=== PATIENT | male | born 1965 | race Caucasian/White ===

== ENCOUNTER 2022-01-27 14:00 | Day surgery (SDC) | payer OTHER, SELFPAY ==
[2022-01-27 14:01] VITALS: BP 189/140; PULSE 95; RESP 18; TEMP 37; O2SAT 98; BMI 32.6
[2022-01-27] MEDS: 0.9 % Sodium Chloride 1,000 ML 999 ML IV (14:27)
[2022-01-27] MEDS: Nitroglycerin 0.4 MG TAB.SUBL SUBLINGUAL (14:27)
--- NOTE | 2022-01-27 14:28 | ED.GENADULT ---
HPI - General Adult General Chief complaint: General Medical Stated complaint: choking Time Seen by Provider: 01/27/22 14:23 Source: patient Mode of arrival: ambulatory Limitations: no limitations History of Present Illness MD complaint: ate chicken (no bones) stuck in throat Onset (ago): hour(s) (2.5) Location: mouth (throat) Radiation: non-radiation Severity: moderate Quality: dull Pain Consistency: constant Relieving factors: none Exacerbating factors: other (swallowing - cannot keep anything down including saliva) Associated symptoms: nausea/vomiting Treatments prior to arrival: none Related Data Allergies Allergy/AdvReac Type Severity Reaction Status Date / Time No Known Allergies Allergy Verified 01/27/22 14:23 Review of Systems Review of Systems: Constitutional : No Weight loss, No Fever, No Chills ENT/Mouth : No sore throat, No Rhinorrhea Eyes: No Swelling, No Redness Cardiovascular : No Chest Pain, No SOB, NoEdema Respiratory : No Cough, No Sputum, No Wheezing Gastrointestinal : Positive Nausea, Positive Vomiting, no Diarrhea, no abdominal Pain, No Hematochezia, No Melena Genitourinary : No Dysuria, No Urinary Frequency, No Hematuria, No Urgency Musculoskeletal : No joint pain, No Myalgias, No Joint Swelling Skin : No Skin Lesions, No rash Neuro : No Weakness, No Numbness, No Dizziness, No Headache Psych : No Anxiety/Panic, No Depression Heme/Lymph: No Bruising, No Lymphadenopathy Endocrine : No Polyuria, No Polydipsia All other systems reviewed and are negative. [facility] Past Medical History Attestation statement: The following information was validated with the patient. Medical History No pertinent past medical history Social History Social History (Updated 01/27/22 @ 14:29 by Crista Noble DO) Alcohol intake: never Patient Tobacco Use Status: Never used Tobacco Advance Directives: No Advance Directives Information Provided: No Physical Exam ED Vital Signs: Vital Signs - 24 hr 01/27/22 14:01 Temperature 98.6 F Pulse Rate 95 Respiratory Rate 18 Blood Pressure 189/140 H Pulse Oximetry 98 Oxygen Delivery Method Room Air BMI result Body Mass Index 32.6 Appearance: Alert. Oriented X3. Mild acute distress. Eyes: Pupils equal, round and reactive to light. ENT: Pharynx normal. Spitting up saliva Neck: Normal inspection. Neck supple. CVS: Normal heart rate and rhythm. Pulses normal. Respiratory: No respiratory distress. Breath sounds normal. Abdomen: Soft and non-tender. Skin: Skin warm and dry. Normal skin color. Normal skin turgor. Extremities: No lower extremity edema. No calf ttp Neuro: Oriented X 3. No motor deficit. No sensory deficit. Course Course Course Narrative: no response to nitro will try glucagon no response to glucagon message sent to Dr. Du 306pm. short stay surgery planned admit Medical Decision Making MDM Narrative Medical decision making narrative: 57 yo male with no PMH here with food bolus impaction after eating chicken has had this before but normally can make himself sick at home. At this time he denies bones in the chicken has no medical problems, has never has endoscopy. Will obtain basic labs, IVF, attempt SL nitro to see if this relaxes smooth muscle. Will consult GI if it fails. Not on blood thinners, does note his brother has the same issue. Lab Data Result diagrams: 01/27/22 14:53 01/27/22 14:54 Labs: Lab Results 01/27/22 01/27/22 01/27/22 Range/Units 14:53 14:54 14:54 WBC 7.6 (4.8-10.8) X10*3/uL RBC 5.49 (4.60-5.80) X10*6/uL Hgb 15.8 (14.0-18.0) g/dl Hct 46.3 (42.0-52.0) % MCV 84.3 (80.0-98.0) fL MCH 28.8 (27.0-33.0) pg MCHC 34.1 (31.0-36.0) g/dl RDW 12.6 (11.0-16.0) % Plt Count 311 (160-400) X10*3/uL MPV 8.7 L (9.4-12.4) fL Immature Gran % (Auto) 0.5 H (0.0-0.4) % Neut % (Auto) 61.9 (45-73) % Lymph % (Auto) 26.2 (20-40) % [place] % (Auto) 10.4 (2-11) % Eos % (Auto) 0.3 (0-4) % Baso % (Auto) 0.7 (0-2) % Lymph # (Auto) 2.0 (1.2-4.9) X10*3/uL [place] # (Auto) 0.8 (0.1-1.2) X10*3/uL Eos # (Auto) 0.0 (0.0-0.4) X10*3/uL Baso # (Auto) 0.1 (0.0-0.2) X10*3/uL Abs Immat Gran (auto) 0.04 H (0.00-0.03) X10*3/uL Absolute Neuts (auto) 4.7 (2.0-8.3) x10*3/uL Absolute Nucleated RBC 0.000 (0.0-0.012) X10*3/uL Nucleated RBC % (auto) 0.0 (0.0-0.2) /100WBC PT 11.9 (9.9-13.0) SEC INR 1.0 (0.9-1.1) Sodium 141 (135-145) mmol/L Potassium 5.1 (3.3-5.1) mmol/L Chloride 107 (96-108) mmol/L Carbon Dioxide 28 (22-29) mmol/L Anion Gap 11 L (12-20) BUN 12 (9-16) mg/dL Creatinine 1.03 (0.5-1.4) mg/dL Estim Creat Clear Calc 91.2 Estimated GFR > 60 Random Glucose 107 (60-115) mg/dL Calcium 9.1 (8.4-10.2) mg/dL COVID-19 (DERREK) (Negative) COVID-19 Clin Com 01/27/22 Range/Units 14:54 WBC (4.8-10.8) X10*3/uL RBC (4.60-5.80) X10*6/uL Hgb (14.0-18.0) g/dl Hct (42.0-52.0) % MCV (80.0-98.0) fL MCH (27.0-33.0) pg MCHC (31.0-36.0) g/dl RDW (11.0-16.0) % Plt Count (160-400) X10*3/uL MPV (9.4-12.4) fL Immature Gran % (Auto) (0.0-0.4) % Neut % (Auto) (45-73) % Lymph % (Auto) (20-40) % [place] % (Auto) (2-11) % Eos % (Auto) (0-4) % Baso % (Auto) (0-2) % Lymph # (Auto) (1.2-4.9) X10*3/uL [place] # (Auto) (0.1-1.2) X10*3/uL Eos # (Auto) (0.0-0.4) X10*3/uL Baso # (Auto) (0.0-0.2) X10*3/uL Abs Immat Gran (auto) (0.00-0.03) X10*3/uL Absolute Neuts (auto) (2.0-8.3) x10*3/uL Absolute Nucleated RBC (0.0-0.012) X10*3/uL Nucleated RBC % (auto) (0.0-0.2) /100WBC PT (9.9-13.0) SEC INR (0.9-1.1) Sodium (135-145) mmol/L Potassium (3.3-5.1) mmol/L Chloride (96-108) mmol/L Carbon Dioxide (22-29) mmol/L Anion Gap (12-20) BUN (9-16) mg/dL Creatinine (0.5-1.4) mg/dL Estim Creat Clear Calc Estimated GFR Random Glucose (60-115) mg/dL Calcium (8.4-10.2) mg/dL COVID-19 (DERREK) Negative (Negative) COVID-19 Clin Com See Note Discharge Plan Discharge Clinical Impression: Food impaction of esophagus Qualifiers: Encounter type: initial encounter Qualified Code(s): T18.128A - Food in esophagus causing other injury, initial encounter Patient Disposition: Admitted As Inpatient
--- NOTE | 2022-01-27 14:55 | PC.NURSE ---
pt still unable to pass or vomit chicken. maintaining air way at this time. medicated per emar.
[2022-01-27 14:59] LABS: MANUAL DIFF FLAG NO
[2022-01-27 15:01] LABS: Basophils Absolute Auto 0.1 X10*3/uL (0.0-0.2); Basophils Percent Auto 0.7 % (0-2); Eosinophils Percent Auto 0.3 % (0-4); Hematocrit 46.3 % (42.0-52.0); Hemoglobin 15.8 g/dl (14.0-18.0); Imm Gran Abs Auto 0.04 X10*3/uL (0.00-0.03); Imm Gran Pct Auto 0.5 % (0.0-0.4); Lymphocytes Percent Auto 26.2 % (20-40); Mean Corpuscular HGB Conc 34.1 g/dl (31.0-36.0); Mean Corpuscular Hemoglobin 28.8 pg (27.0-33.0); Mean Corpuscular Volume 84.3 fL (80.0-98.0); Mean Platelet Volume 8.7 fL (9.4-12.4); Monocytes Absolute Auto 0.8 X10*3/uL (0.1-1.2); Monocytes Percent Auto 10.4 % (2-11); Neutrophils Absolute Auto 4.7 x10*3/uL (2.0-8.3); Neutrophils Percent Auto 61.9 % (45-73); Platelet Count 311 X10*3/uL (160-400); Red Blood Count 5.49 X10*6/uL (4.60-5.80); Red Cell Distribution Width 12.6 % (11.0-16.0); White Blood Count 7.6 X10*3/uL (4.8-10.8)
[2022-01-27 15:07] LABS: Prothrombin Time 11.9 SEC (9.9-13.0)
--- NOTE | 2022-01-27 15:08 | PC.NURSE ---
md reaching out to gi at this time, pt aware of plan of care.
[2022-01-27 15:16] LABS: Anion Gap 11 (12-20); Blood Urea Nitrogen 12 mg/dL (9-16); Calcium 9.1 mg/dL (8.4-10.2); Carbon Dioxide 28 mmol/L (22-29); Chloride 107 mmol/L (96-108); Creatinine Clr Calc Pharmacy 91.2; Estimated Glomerular Filt Rate > 60; Glucose Random 107 mg/dL (60-115); Potassium 5.1 mmol/L (3.3-5.1); Sodium 141 mmol/L (135-145)
[2022-01-27 15:25] LABS: COVID-19 Test Negative (Negative); IDNOW Serial# 16C4AD1C
--- NOTE | 2022-01-27 15:41 | ECG_ITS ---
Test Reason : PRE OP Blood Pressure : / mmHG Vent. Rate : 100 BPM Atrial Rate : 100 BPM P-R Int : 158 ms QRS Dur : 080 ms QT Int : 350 ms P-R-T Axes : 033 -14 033 degrees QTc Int : 451 ms Normal sinus rhythm Normal ECG No previous ECGs available Referred By: Crista Noble Electronically Signed By:JH MCCURDY MD
--- NOTE | 2022-01-27 16:28 | HO.ANESPROP2 ---
HPI - Anesthesia Eval Consult details Narrative: food bolus PMFSH Active Problems Active Problems: All Active Problems (Updated 01/27/22 @ 15:07 by Crista Noble DO) Food impaction of esophagus (Acute) Past Medical History Medical History No pertinent past medical history Family History Family history of problems with anesthesia: No Surgical History History of Problems with Anesthesia: No Social History Social History (Updated 01/27/22 @ 14:29 by Crista Noble DO) Alcohol intake: never Patient Tobacco Use Status: Never used Tobacco Advance Directives: No Advance Directives Information Provided: No Meds Allergies Allergy/AdvReac Type Severity Reaction Status Date / Time No Known Allergies Allergy Verified 01/27/22 14:23 Home Medications Medication Instructions Recorded Confirmed Last Taken Type doxepin 3 mg tablet 1 tab PO BEDTIME 01/27/22 Unknown History Exam Exam Date and Time: January 27, 2022 1628 Height,Weight and Vital Signs: Height 5 ft 9 in Weight 100.24 kg Last Vital Signs Temp 98.6 F 01/27/22 14:01 Pulse 95 01/27/22 14:01 Resp 18 01/27/22 14:01 BP 189/140 H 01/27/22 14:01 Pulse Ox 98 01/27/22 14:01 O2 Del Method 01/27/22 14:01 Pertinent Lab Results Pertinent Lab Results: Laboratory Tests 01/27/22 01/27/22 01/27/22 14:53 14:54 14:54 WBC 7.6 RBC 5.49 Hgb 15.8 Hct 46.3 MCV 84.3 MCH 28.8 MCHC 34.1 RDW 12.6 Plt Count 311 MPV 8.7 L Immature Gran % (Auto) 0.5 H Neut % (Auto) 61.9 Lymph % (Auto) 26.2 [place] % (Auto) 10.4 Eos % (Auto) 0.3 Baso % (Auto) 0.7 Lymph # (Auto) 2.0 [place] # (Auto) 0.8 Eos # (Auto) 0.0 Baso # (Auto) 0.1 Abs Immat Gran (auto) 0.04 H Absolute Neuts (auto) 4.7 Absolute Nucleated RBC 0.000 Nucleated RBC % (auto) 0.0 PT 11.9 INR 1.0 Sodium 141 Potassium 5.1 Chloride 107 Carbon Dioxide 28 Anion Gap 11 L BUN 12 Creatinine 1.03 Estim Creat Clear Calc 91.2 Estimated GFR > 60 Random Glucose 107 Calcium 9.1 COVID-19 (DERREK) COVID-19 Clin Com 01/27/22 14:54 WBC RBC Hgb Hct MCV MCH MCHC RDW Plt Count MPV Immature Gran % (Auto) Neut % (Auto) Lymph % (Auto) [place] % (Auto) Eos % (Auto) Baso % (Auto) Lymph # (Auto) [place] # (Auto) Eos # (Auto) Baso # (Auto) Abs Immat Gran (auto) Absolute Neuts (auto) Absolute Nucleated RBC Nucleated RBC % (auto) PT INR Sodium Potassium Chloride Carbon Dioxide Anion Gap BUN Creatinine Estim Creat Clear Calc Estimated GFR Random Glucose Calcium COVID-19 (DERREK) Negative COVID-19 Clin Com See Note Airway Mallampati Class: II TM Dist: >3cm Neck ROM: Full Heart: RRR Lungs: CTA Assessment and Plan Assessment Anesthesia Assessment: Anesthesia Plan Discussed and Chart Reviewed Final Anesthetic Review Family History of Problems with Anesthesia: No History of Problems with Anesthesia: No NPO: No ASA Class: I and Emergency Final Preanesthetic Review: No Changes in Pt Med Stat, Consent Obtained/Reviewed and Anes Risks/Benef Reviewed Patient Risk: Low Procedure Risk: Low Anesthetic Plan Anesthetic Plan: MAC: Disposition: Standard PACU
--- NOTE | 2022-01-27 16:37 | MHC.SHP ---
Pre-Procedural Eval Section A Date of Service: 01/27/22 The patient is an INPATIENT: No The History & Physical has been completed within 30 days and I have reviewed it.: Yes Section B Chief Complaint: choking Allergies: Allergies Allergy/AdvReac Type Severity Reaction Status Date / Time No Known Allergies Allergy Verified 01/27/22 14:23 Plan I have reviewed the history and physical and performed a pertinent physical examination on my patient. No changes have occurred unless specified.
--- NOTE | 2022-01-27 16:37 | PM.EVENT ---
Event Note Date of Service: 01/27/22 Event Note: GI Consult-Full note dictated Imp: 57 yo healthy male with an esophageal obstruction due to chicken that has been refractory to Glucagon and NTG in the ER. He is unable to swallow saliva. He describes occasional brief episodes that usually respond to regurgitation after 5-10 minutes at home. Rec: EGD with possible dilation today. Full consent obtained for this, including risks of bleeding and perforation. D/W patient and in detail. They are comfortable with this plan. Thanks
[2022-01-27 18:10] VITALS: BP 164/100; PULSE 91; RESP 15; TEMP 36.2; O2SAT 97
[2022-01-27 18:15] VITALS: BP 140/88; PULSE 85; RESP 16; O2SAT 97
--- NOTE | 2022-01-27 18:17 | P.BOP_ITS ---
Brief Operative Note Date of Service: 01/27/22 Pre-op diagnosis: Esophageal obstruction Post-op diagnosis: other (Same) Procedure: Upper endoscopy with removal of food bolus Surgeon: Tiago Du Anesthesia: GETA, MAC and other (Glucagon 1 mg IV x 1) Was an Support Representative used for this Procedure?: No Estimated blood loss (mL): 5.0 Pathology: none sent Condition: stable Disposition: PACU
[2022-01-27] MEDS: Pantoprazole Sodium 40 MG/10 ML VIAL IVPUSH (18:19)
[2022-01-27 18:20] VITALS: BP 152/93; PULSE 82; RESP 16; O2SAT 97
[2022-01-27 18:25] VITALS: BP 143/92; PULSE 85; RESP 16; O2SAT 97
[2022-01-27] MEDS: Acetaminophen 325 MG TABLET 975 MG PO (18:32)
[2022-01-27 18:40] VITALS: BP 144/98; PULSE 77; RESP 16; TEMP 36.6; O2SAT 97
--- NOTE | 2022-01-28 04:09 | CONS_ITS ---
DATE OF SERVICE: REASON FOR CONSULTATION: Esophageal obstruction and dysphagia. HISTORY OF PRESENT ILLNESS: This has been obtained from the patient and his . The patient is a 57-year-old healthy male, who was in his usual state of health up until around noontime when he was eating lunch at the [employer]. He was eating bourbon chicken and apparently a big chunk became stuck in the esophagus. Since that time, he has been unable to swallow any liquids nor saliva. He describes that over the years he has had very occasional episodes of dysphagia that might take 5 or 10 minutes to resolve, usually with regurgitation. He has never had a prolonged episode. He has never seen a porcelain enamel sprayer nor had an endoscopy. He denies any significant heartburn general at home. Prior today he was feeling well with good appetite. His bowel movements have been regular without any sign of bleeding. He denies any abdominal pain, chest pain, nor shortness of breath. In the ER, his symptoms were refractory to glucagon and nitroglycerin. He continues to be unable to swallow saliva. MEDICATIONS: At home none. PAST MEDICAL HISTORY: Bilateral wrist surgery and umbilical hernia surgery. He denies any medical problems such as heart disease, diabetes, stroke, lung disease, or kidney disease. SOCIAL HISTORY: He works in a custodial. He does not smoke nor use any significant amounts of alcohol. He is . FAMILY HISTORY: He does describe that his brother has had episodes of dysphagia and has had upper endoscopies with dilations in the past. REVIEW OF SYSTEMS: CONSTITUTIONAL: Up until today, he was feeling well with good energy, good appetite. SKIN: No rash. No pruritus. CARDIAC: No chest pain. PULMONARY: No coughing. No hemoptysis. GI: As above. PHYSICAL EXAMINATION: GENERAL: The patient is a pleasant alert male. He has to spit into a bag to relieve the buildup of saliva in his mouth. NECK: Supple without lymphadenopathy or crepitus. CHEST: Clear bilaterally. CARDIAC: Normal S1, S2. There is no chest wall crepitus. ABDOMEN: Soft, nondistended, nontender. LABORATORY DATA: From today showed a normal CBC with platelet count. Normal PT with INR and normal chemistries and renal function. IMPRESSION: Given the patient's history he obviously has an esophageal obstruction that has been refractory to medical therapy. Based on the history of occasional episodes in the past that are transient I suspect he has an esophageal ring causing an obstruction today of a large piece of food. At this point, he will undergo upper endoscopy later today with monitored anesthesia care to attempt to relieve the obstruction. I did advise him that if I do see a narrowing such as an esophageal ring, this may require esophageal dilation as well. Full consent has been obtained from him for this, including risks of bleeding and perforation. I did review with him and his the importance of eating slowly and being sure to cut up his food carefully in the future. Full consent has been obtained for the endoscopy, including risks of bleeding and perforation. This has all been discussed in detail with the patient and his . They are both comfortable with this plan. Thank you for the consultation. MD RAJAT Hwang/MANNY / [id number] MTDD
--- NOTE | 2022-01-28 04:48 | OP_ITS ---
SURGEON: Tiago Du MD INDICATIONS: The patient presents with acute onset of dysphagia while eating chicken earlier today and has had refractory dysphagia to glucagon and nitroglycerin as administered in the ER. Full consent has been obtained from him for this, including risks of bleeding and perforation. PREOPERATIVE DIAGNOSIS: Esophageal obstruction in relation to food impaction. POSTOPERATIVE DIAGNOSIS: Esophageal obstruction in relation to food impaction. PROCEDURE PERFORMED: Upper endoscopy with removal of esophageal food impaction. ESTIMATED BLOOD LOSS: COMPLICATIONS: ANESTHESIA: Medication used, the case was initially started with monitored anesthesia care and then converted to general anesthesia via endotracheal intubation. He did receive Glucagon 1 mg IV x 1 dose during the procedure. ASSISTANTS: SPECIMENS: DESCRIPTION OF PROCEDURE: The patient was placed in the left lateral decubitus position. The Olympus video gastroscope was passed in the posterior oropharynx and upper esophagus under direct vision. The scope was passed to approximately 30 cm. There was a fair amount of fluid in the esophagus, which was suctioned and removed. At 30 cm, there was a large food bolus, which was able to be pushed fairly easily to the distal esophagus between 35 and 40 cm. I then spent some time trying to break it up and push it into the stomach with a biopsy forceps and with the scope itself. However, this was unsuccessful. At that point, I decided that we would probably have to pull the food out piece by piece. Therefore, the procedure was converted to general anesthesia. He did receive glucagon 1 mg IV x 1 dose at that time in hopes of allowing some relaxation of the EG Junction and to facilitate passage of the food bolus. The patient was in the supine position at this point, and the Olympus video gastroscope was again passed in the posterior oropharynx and upper esophagus under direct vision. The scope was passed to the distal esophagus. The food bolus was seen between 35 and 40 cm. At that point, I did spend a few more minutes breaking it up further with a biopsy forceps and then I was able to push it into the stomach and advance the scope into the stomach as well. The proximal stomach had a fair amount of fluid and food. Therefore, I did not inspect the distal stomach nor duodenum. I did inspect the area of the gastroesophageal junction at approximately 40 cm. There was a fair amount of heme noted. There was no mass. There was no obvious stricture. There may have been some possible evidence of a ring, but if there was one it was clearly disrupted at that point. I did not visualize any sign of mucosal tears. Proximal to this, the esophageal mucosa appeared normal. There was no other food in the esophagus. There was no sign of esophagitis. The scope was withdrawn from the patient. He tolerated the procedure well and was returned to the recovery area in stable condition. Of note, he was extubated in the endoscopy room. IMPRESSION: 1. Esophageal food impaction. 2. Possible distal esophageal ring. PLAN: The patient will be observed in the recovery room and if stable, will be discharged later today. Instructions have been given that he should stay on a full liquid diet for 24 hours, and then a soft diet for 2 to 3 more days. He has been advised not to have any hard bread or meat during this time. He was advised in general that he needs to eat very slowly and cut up his food carefully. He has been advised to avoid all aspirin and NSAID products for at least 2 weeks. He was given a dose of IV pantoprazole here in the recovery room and was given a prescription to start 40 mg of omeprazole every morning starting tomorrow. My office will be in touch with him to set up an outpatient upper GI series with a barium tablet and an office visit. At some point, he may need a repeat upper endoscopy for further evaluation to consider dilation if need be. He was advised to call sooner if he has any problems. This has all been discussed with him and his in detail. They are both comfortable with this plan. MD RAJAT Hwang/MANNY / [id number] SHARAD
== END 2022-01-27 18:43 | disposition home or self-care (01) ==
LOC: HO.ED 15:42 → HO.SSS 17:03
PROVIDERS: Emergency Provider Emergency Medicine; Visit Provider Internal Medicine
PROC: 0DJ08ZZ Inspection of Upper Intestinal Tract, Via Natural or Artificial Opening Endoscopic (ICD-10-PCS; CPT 43235; principal; 2022-01-27 16:00)
DX: K22.2 Esophageal obstruction (principal); R13.10 Dysphagia, unspecified; Z20.822 Contact with and (suspected) exposure to COVID-19; Z88.8 Allergy status to other drugs, medicaments and biological substances
CPT/HCPCS: 43247; 80048; 85025; 85610; 87635; 93005; 96361; 96374; 99284; 99285; J0330; J1610; J3010

== ENCOUNTER 2022-03-07 10:25 | Day surgery (SDC) | payer OTHER, SELFPAY ==
--- NOTE | 2022-03-06 08:31 | P.CONAN_ITS ---
Documented by User: Catie Millan NP 03/06/22 08:32 HPI - Anesthesia Eval Consult details Narrative: 57yo M for Upper Endoscopy with Balloon Dilitation s/p EGD 01/2022 with MAC PMFSH Active Problems Active Problems: All Active Problems (Updated 01/27/22 @ 15:07 by Crista Noble DO) Food impaction of esophagus (Acute) Past Medical History Medical History (Updated 03/07/22 @ 11:11 by Denise Florian, RN) BPH with elevated PSA Hypercholesteremia No pertinent past medical history Family History Family history of problems with anesthesia: No Surgical History Surgical History (Updated 03/07/22 @ 11:11 by Denise Florian RN) History of esophagogastroduodenoscopy (EGD) History of Problems with Anesthesia: No Social History Social History (Updated 01/27/22 @ 14:29 by Crista Noble DO) Alcohol intake: never Patient Tobacco Use Status: Never used Tobacco Are you DNR?: No Advance Directives: No Advance Directives Information Provided: Yes Nutrition Risks: No Nutritional Risk Meds Allergies Allergy/AdvReac Type Severity Reaction Status Date / Time morphine Allergy Intermediate Rash Verified 03/07/22 10:55 novacaine Allergy Mild Fainting Uncoded 03/07/22 10:55 Home Medications Medication Instructions Recorded Confirmed Last Taken Type doxepin 3 mg tablet 1 tab PO BEDTIME 01/27/22 01/27/22 Unknown History atorvastatin 10 mg tablet 1 tab PO DAILY 03/07/22 03/07/22 Unknown History omeprazole 40 mg capsule,delayed 1 cap PO QAM 03/07/22 03/07/22 Unknown History release tamsulosin 0.4 mg capsule 1 cap PO BEDTIME 03/07/22 03/07/22 Unknown History tramadol 50 mg tablet 1 tab PO Q6H 03/07/22 03/07/22 Unknown History Exam Exam Date and Time: March 06, 2022 0831 Narrative Narrative: EKG 01/2022 Vent. Rate : 100 BPM ? ? Atrial Rate : 100 BPM ?? P-R Int : 158 ms? QRS Dur : 080 ms ? ? QT Int : 350 ms ? ? ? P-R-T Axes : 033 -14 033 degrees ?? QTc Int : 451 ms ? Normal sinus rhythm Normal ECG No previous ECGs available Assessment and Plan Assessment Anesthesia Assessment: Chart Reviewed Final Anesthetic Review Family History of Problems with Anesthesia: No History of Problems with Anesthesia: No Documented by User: Terell Worthington MD 03/07/22 12:27 HPI - Anesthesia Eval Consult details Narrative: 57yo M for Upper Endoscopy with Balloon Dilitation s/p EGD 01/2022 with MAC converted to GA Recent pmeumonia s/p antibiotic therapy . Some residual cough , afebrile . [facility] Past Medical History Medical History (Updated 03/07/22 @ 11:11 by Denise Florian RN) BPH with elevated PSA Hypercholesteremia No pertinent past medical history Functional capacity: independent ambulation Surgical History Surgical History (Updated 03/07/22 @ 11:11 by Denise Florian RN) History of esophagogastroduodenoscopy (EGD) Social History Social History (Updated 01/27/22 @ 14:29 by Crista Noble DO) Alcohol intake: never Patient Tobacco Use Status: Never used Tobacco Are you DNR?: No Advance Directives: No Advance Directives Information Provided: Yes Nutrition Risks: No Nutritional Risk Meds Allergies Allergy/AdvReac Type Severity Reaction Status Date / Time morphine Allergy Intermediate Rash Verified 03/07/22 10:55 novacaine Allergy Mild Fainting Uncoded 03/07/22 10:55 Home Medications Medication Instructions Recorded Confirmed Last Taken Type doxepin 3 mg tablet 1 tab PO BEDTIME 01/27/22 01/27/22 Unknown History atorvastatin 10 mg tablet 1 tab PO DAILY 03/07/22 03/07/22 Unknown History omeprazole 40 mg capsule,delayed 1 cap PO QAM 03/07/22 03/07/22 Unknown History release tamsulosin 0.4 mg capsule 1 cap PO BEDTIME 03/07/22 03/07/22 Unknown History tramadol 50 mg tablet 1 tab PO Q6H 03/07/22 03/07/22 Unknown History Exam Airway Mallampati Class: III TM Dist: >3cm Neck ROM: Full Loose/Missing/Broken Teeth: Yes (Poor dentition , chipped tooth , missing teeth ) Heart: S1,S2 Lungs: diminished breath sounds b/l Assessment and Plan Final Anesthetic Review NPO: Yes ASA Class: II Final Preanesthetic Review: Meds/Allgs Chart Reviewed, Consent Obtained/Reviewed and Anes Risks/Benef Reviewed Patient Risk: High Procedure Risk: Intermediate Anesthetic Plan Anesthetic Plan: MAC: Disposition: Standard PACU
[2022-03-07 10:39] VITALS: BMI 32.6
[2022-03-07] MEDS: Lactated Ringers 1,000 ML 100 ML IVCONT (10:45)
[2022-03-07 11:05] VITALS: BP 162/97; PULSE 83; RESP 18; TEMP 36.6; O2SAT 98
--- NOTE | 2022-03-07 11:47 | PM.OP ---
Brief Operative Note Date of Service: 03/07/22 Pre-op diagnosis: Dysphagia, Abnormal Barium swallow Post-op diagnosis: other (Hiatal hernia, GERD, R/O EoE) Procedure: EGD with Balloon dilation 18 to 19 to 20mm, and biopsies Surgeon: Tiago Du Anesthesia: MAC Was an Administrative Executive used for this Procedure?: No Estimated blood loss (mL): 2.0 Pathology: other (A. Esophagus at 25cm B. EG Junction at 39cm) Condition: stable Disposition: PACU
[2022-03-07 11:57] VITALS: BP 121/80; PULSE 87; RESP 17; TEMP 37.2; O2SAT 95
[2022-03-07 12:13] VITALS: BP 124/83; PULSE 84; RESP 20; O2SAT 95
[2022-03-07 12:28] VITALS: BP 116/85; PULSE 78; RESP 17; TEMP 36.8; O2SAT 98
--- NOTE | 2022-03-07 23:19 | OP_ITS ---
SURGEON: Tiago Du MD INDICATIONS: The patient presents for evaluation of dysphagia and abnormal barium swallow. Full consent has been obtained from him for this, including risks of bleeding and perforation. PREOPERATIVE DIAGNOSIS: POSTOPERATIVE DIAGNOSIS: PROCEDURE PERFORMED: Esophagogastroduodenoscopy with balloon dilation of gastroesophageal junction and biopsies. ESTIMATED BLOOD LOSS: COMPLICATIONS: ANESTHESIA: Monitored anesthesia care. ASSISTANTS: SPECIMENS: PREOPERATIVE DIAGNOSES: Dysphagia and abnormal barium swallow. POSTOPERATIVE DIAGNOSES: Dysphagia and abnormal barium swallow, small hiatal hernia, gastroesophageal reflux, rule out eosinophilic esophagitis. DESCRIPTION OF PROCEDURE: The patient was placed in the left lateral decubitus position. The [employer] video gastroscope was passed in the posterior oropharynx and upper esophagus under direct vision. The scope was passed slowly to the distal esophagus. The gastroesophageal junction appeared at 39 cm. This area was notable for some erythema and edema, but no esophagitis, ulceration, stricture, nor obvious ring. The scope easily entered the stomach. There was a small hiatal hernia. The scope was advanced to pylorus and the duodenum was cannulated to the descending portion. The duodenum including the bulb appeared normal without mass or ulceration. The scope was withdrawn back to the stomach. The gastric antrum and body appeared normal with good peristalsis. The scope was retroflexed visualizing the proximal stomach carefully which appeared normal, without any sign of mass or ulceration. Of note, there was a tiny bit of food in the proximal stomach. The scope was straightened and withdrawn back to the esophagus. Given his history and his symptomatology, as well as the recent barium swallow, I did use a [employer] incremental balloon to dilate the gastroesophageal junction from 18 mm to 19 mm to 20 mm at the recommended pressure for 60 seconds each. Post-dilation, there was a minimal amount of heme and no real disruption of any mucosa noted. Biopsies were obtained from the EG junction as well. The scope was withdrawn through the remainder of the esophagus. I did not visualize any proximal esophageal rings nor strictures. The esophagus appeared to be mildly tortuous but with some peristalsis noted. Biopsies were obtained at 25 cm. The scope was withdrawn from the patient. He tolerated the procedure well and was returned to the recovery area in stable condition. IMPRESSION: 1. Small hiatal hernia, gastroesophageal reflux. 2. Rule out eosinophilic esophagitis. PLAN: The patient will continue his daily omeprazole 40 mg. I have advised him to continue that long-term and then see me at his scheduled appointment in June. However, I did advise him to contact me prior to that if he has swallowing difficulties at which point we may want to set up a motility study of the esophagus. He was advised to stay off all aspirin and NSAIDs for at least 2 weeks. This has all been discussed with his . MD RAJAT Hwang/MANNY / [id number]
== END 2022-03-07 13:18 | disposition home or self-care (01) ==
PROVIDERS: Visit Provider Internal Medicine
PROC: (CPT 43249; principal; 2022-03-07 11:30)
DX: R93.3 Abnormal findings on diagnostic imaging of other parts of digestive tract (principal); R13.19 Other dysphagia; K22.2 Esophageal obstruction; K21.9 Gastro-esophageal reflux disease without esophagitis; K20.80 Other esophagitis without bleeding; K44.9 Diaphragmatic hernia without obstruction or gangrene; Z79.899 Other long term (current) drug therapy; Z88.8 Allergy status to other drugs, medicaments and biological substances
CPT/HCPCS: 43249; 43239; 88305; C1726; J3010